=== PATIENT | female | born 1930 | race Caucasian/White ===

== ENCOUNTER → 2016-10-21 | Outpatient (CLI) | payer OTHER ==
--- NOTE | 2016-10-21 13:35 | DX ---
DEXA Bone Mineral Densitometry Clinical Indications: Postmenopausal, history of thoracic compression fractures, HRT, Fosamax in the past, thyroid dysfunction on Synthroid. Comparison: October 20, 2014 Technique: Bone Mineral Densitometry (BMD) by Dual Energy X-Ray Absorptiometry (DEXA) was performed utilizing the [employer] scanner. The lumbar spine was evaluated in the AP projection. The bilat eral hips and forearm were evaluated in the AP projection. Vertebral fracture assessment was also pe rformed. AP Lumbar Spine: The L1, L2 and L3 vertebral bodies were evaluated. L4 is excluded due to degenerat karina sclerosis. BMD: 1.005 gm/cm2 T-score: -1.4 SD Z-score: 0.5 SD No significant change in L1-L4. AP Left Hip: Total BMD: 0.741 gm/cm2 T-score: -2.1 SD Z-score: 03 SD No significant change. AP Right Hip: Total BMD: 0.665 gm/cm2 T-score: -2.7 SD Z-score: -0.3 SD No significant change. AP Left Forearm, 10/08: BMD: 0.581 gm/cm2 T-score: -3.4 SD Z-score: 0 SD No significant change. Vertebral Fracture Assessment: Old compression abnormalities in the thoracic spine are stable.No new fracture deformity. No prevertebral aortic calcification, significant marginal bone spurring, facet arthrosis, or intrinsic vertebral body sclerosis that would effect the accuracy of the lumbar spine BMD measurement. Conclusion: Considering the lowest measured site, the patient remains osteoporotic and increased ris k for additional fractures. . Since the forearm is the lowest measured site, it would be worthwhile to exclude hyperparathyroidism. The ten year FRAX risk for any major osteoporotic fracture , which excludes the risk for a wrist frac ture, is 16% and for a hip fracture is 5.7%. The most common iatrogenic cause of bone loss is overtreatment for thyroid disorders. Consider check ing the patient's TSH (thyroid stimulating hormone) level to ensure that it is normal. To prevent osteoporosis and to promote the patient's bone density, the following recommendations shou ld be considered: 1. Pursue a regular regimen of weightbearing and muscle strengthening exercises in order to reduce t he risk of falls and fractures (as tolerated by the patient's general medical condition). 2. Ensure that daily dietary calcium uptake is maximized. 3. Consider checking the serum vitamin D level. Ensure that intake of vitamin D is 800 IU per day ( for ages 71 and older). 4. Consider follow-up DEXA scan in two years to reassess the BMD in this osteoporotic patient.
== END ==
LOC: FIMAGING 10:18
PROVIDERS: ATTEND Internal Medicine
DX: M81.8 Other osteoporosis without current pathological fracture (principal); Z78.0 Asymptomatic menopausal state; E07.9 Disorder of thyroid, unspecified

== ENCOUNTER → 2017-01-16 | Outpatient (CLI) | payer OTHER | LOC: BHFA 11:30 | PROVIDERS: ATTEND Internal Medicine Cardiovascular Disease | DX: I35.1 Nonrheumatic aortic (valve) insufficiency (principal); I34.0 Nonrheumatic mitral (valve) insufficiency ==